=== PATIENT | female | born 1985 | race African-American/Black ===

== ENCOUNTER 2019-03-18 07:57 | Emergency (ER) | payer SELFPAY ==
[~2019-03-18] VITALS: Ht 167.6 cm; Wt 90.7 kg
--- NOTE | 2019-03-18 08:33 | PHYS DOC ---
Adult General Chief Complaint Chief Complaint: URINARY FREQUENCY HPI HPI Patient is a 33 year old female who presents with complaining of urinary problem. Patient complaining of urinary frequency and discharge for the last 10 days that resolved during her menstruation and started since yesterday again. Patient states she took [id number] yeast infection supposedly 30 several days ago without improvement of her condition. Patient denies dysuria and fever and chills but complaining of discomfort suprapubic pain. Review of Systems Review of Systems Constitutional: Denies fever or chills [] Eyes: Denies change in visual acuity, redness, or eye pain [] HENT: Denies nasal congestion or sore throat [] Respiratory: Denies cough or shortness of breath [] Cardiovascular: No additional information not addressed in HPI [] GI: Denies abdominal pain, nausea, vomiting, bloody stools or diarrhea [] : Denies dysuria or hematuria, reports urinary frequency[] Musculoskeletal: Denies back pain or joint pain [] Integument: Denies rash or skin lesions [] Neurologic: Denies headache, focal weakness or sensory changes [] Endocrine: Denies polyuria or polydipsia [] All other systems were reviewed and found to be within normal limits, except as documented in this note. Physical Exam Physical Exam Constitutional: Well developed, well nourished, no acute distress, non-toxic appearance. [] HENT: Normocephalic, atraumatic. Eyes: PERRLA, EOMI, conjunctiva normal, no discharge. [] Neck: Normal range of motion, no tenderness, supple, no stridor. [] Cardiovascular:Heart rate regular rhythm, no murmur [] Lungs & Thorax: Bilateral breath sounds clear to auscultation [] Abdomen: Bowel sounds normal, soft, no tenderness, no masses, no pulsatile masses. [] Skin: Warm, dry, no erythema, no rash. [] Back: No tenderness, no CVA tenderness. [] Extremities: No tenderness, no cyanosis, no clubbing, ROM intact, no edema. [] Neurologic: Alert and oriented X 3, normal motor function, normal sensory function, no focal deficits noted. [] Psychologic: Affect normal, judgement normal, mood normal. [] Current Patient Data Vital Signs Vital Signs Date Time Temp Pulse Resp B/P (MAP) Pulse Ox O2 Delivery O2 Flow Rate FiO2 6/14/19 08:26 97.8 63 18 145/98 (114) 99 Room Air 97.8 Lab Values Laboratory Tests Test 03/18/19 08:13 03/18/19 08:54 POC Urine HCG, Qualitative Hcg negative (Negative) Urine Collection Type Unknown Urine Color Yellow Urine Clarity Turbid Urine pH 6.0 Urine Specific [place] >=1.030 Urine Protein 30 mg/dL (NEG-TRACE) Urine Glucose (UA) Negative mg/dL (NEG) Urine Ketones (Stick) 15 mg/dL (NEG) Urine Blood Small (NEG) Urine Nitrite Negative (NEG) Urine Bilirubin Negative (NEG) Urine Urobilinogen Dipstick 0.2 mg/dL (0.2 mg/dL) Urine Leukocyte Esterase Large (NEG) Urine RBC 20-40 /HPF (0-2) Urine WBC Tntc /HPF (0-4) Urine Bacteria Many /HPF (0-FEW) Urine Mucus Marked /LPF EKG EKG [] Radiology/Procedures Radiology/Procedures [] Course & Med Decision Making Course & Med Decision Making Pertinent Labs reviewed. (See chart for details) Evaluation of patient in ER showed 45-year-old male patient with complaining of urinary symptom for 10 days. UA showed too numerous to count WBC and some RBC. She did not want to have pain medication in ER. Plan discharge patient home with diagnosis of hemorrhagic cystitis and instruction to increase fluid intake and empty her bladder often. Dragon Disclaimer Dragon Disclaimer This electronic medical record was generated, in whole or in part, using a voice recognition dictation system. Departure Departure Impression: Primary Impression: Acute hemorrhagic cystitis Disposition: HOME, SELF-CARE (at 0 [phone]) Condition: STABLE Patient Instructions: Urinary Tract Infection Additional Instructions: Drink plenty of liquids Follow-up with your primary care physician in 3-5 days Return to ER if not getting better Scripts Naproxen (NAPROSYN) 500 Mg Tablet 1 TAB PO BID for pain, #20 TAB Prov: BRIT HARRIS MD 03/18/19 Cephalexin (KEFLEX) 500 Mg Capsule 2 CAP PO Q12HR, #28 CAP Prov: BRIT HARRIS MD 03/18/19 BRIT HARRIS MD Mar 18, 2019 08:33
[2019-03-18 09:28] LABS: BILIRUBIN,URINE NEGATIVE (NEG); CLARITY,URINE TURBID; COLOR,URINE YELLOW
[2019-03-18 09:29] LABS: NITRITE,URINE NEGATIVE (NEG); PROTEIN,URINE 30 mg/dL (NEG-TRACE); UROBILINOGEN,URINE 0.2 mg/dL (0.2 mg/dL)
[2019-03-18 09:30] LABS: BACTERIA,URINE MANY /HPF (0-FEW); RBC,URINE 20-40 /HPF (0-2); WBC,URINE TNTC /HPF (0-4)
[2019-03-18 09:35] VITALS: BP 136/88
[2019-03-18] MEDS ORDERED: NAPR-683 PO (09:47)
[2019-03-18] MEDS ORDERED: CEPH-264 PO (09:47)
== END 2019-03-18 10:05 | disposition home or self-care (01) ==
LOC: ER 07:57
DX: N30.01 Acute cystitis with hematuria (principal)
CPT/HCPCS: 81001; 81025; 87086; 99284